=== PATIENT | male | born 1980 | race Caucasian/White ===

== ENCOUNTER 2018-04-06 15:22 | Emergency (ER) | payer OTHER ==
[2018-04-06 15:44] VITALS: BMI 26.8
--- NOTE | 2018-04-06 15:55 | PDOC ---
Rapid Medical Evaluation Chief Complaint: Pain Time Seen by Provider: 04/06/18 15:41 Medical Evaluation: 04/06/18 15:41 I have performed a brief in-person evaluation of this patient. The patient presents with a chief complaint of: left groin pain and swelling Pertinent physical exam findings: soft tender inguinal mass present I have ordered the following: labs, urine, CTAP The patient will proceed to the ED for further evaluation. Discharge Disposition - Diagnosis Inguinal bulge - Referrals Referrals: Amber Morales MD [Primary Care Provider] - - Patient Instructions - Post Discharge Activity
[2018-04-06 17:09] LABS: BASO % 0.5 % (0-2.0); EOS % 0.5 % (0-4.5); HEMATOCRIT 45.4 % (35.4-49); HEMOGLOBIN 16.4 GM/dL (11.7-16.9); LYMPH % 21.2 % (8-40); MCH 33.6 pg (25.7-33.7); MCHC 36.2 g/dl (32.0-35.9); MEAN CELL VOLUME 92.9 fl (80-96); MEAN PLT VOLUME 10.6 fl (7.5-11.1); MONO % 6.6 % (3.8-10.2); NEUT % 71.2 % (42.8-82.8); PLATELET COUNT 226 K/MM3 (134-434); RBC 4.89 M/mm3 (4.00-5.60); RDW 13.2 % (11.9-15.9)
[2018-04-06 17:24] LABS: INR 1.05 (0.83-1.09); PROTHROMBIN TIME (PATIENT) 12.4 SEC (9.7-13.0)
--- NOTE | 2018-04-06 17:29 | PDOC ---
History of Present Illness - General Chief Complaint: Pain Stated Complaint: SENT BY PCP FOR A CTSCAN Time Seen by Provider: 04/06/18 15:41 History Source: Patient - History of Present Illness Timing/Duration: reports: constant Quality: reports: severe Abdominal Pain Onset Location: reports: other (L groin) Past History - Past Medical History Allergies/Adverse Reactions: Allergies Allergy/AdvReac Type Severity Reaction Status Date / Time No Known Allergies Allergy Verified 04/06/18 15:44 Home Medications: Ambulatory Orders NK [No Known Home Medication] 04/06/18 COPD: No - Suicide/Smoking/Psychosocial Hx Smoking History: Never smoked Have you smoked in the past 12 months: No Information on smoking cessation initiated: No Hx Alcohol Use: No Drug/Substance Use Hx: No Review of Systems - Review of Systems Constitutional: No: Chills, Fever ABD/GI: No: Constipated, Diarrhea, Nausea, Vomiting, Abdominal cramping : No: Burning, Dysuria, Discharge, Flank Pain, Hematuria, Testicular Mass, Testicular Swelling, Testicular Pain *Physical Exam - Vital Signs Last Vital Signs Temp Pulse Resp BP Pulse Ox 98.0 F 78 18 129/88 100 04/06/18 15:42 04/06/18 15:42 04/06/18 15:42 04/06/18 15:42 04/06/18 15:42 - Physical Exam General Appearance: Yes: Appropriately Dressed. No: Apparent Distress HEENT: positive: Normal Voice Neck: positive: Supple Respiratory/Chest: negative: Respiratory Distress Gastrointestinal/Abdominal: positive: Normal Bowel Sounds, Tender (sig ttp to L groin w/ possible incarcerated hernia), Soft. negative: Distended, Guarding, Rebound Musculoskeletal: negative: CVA Tenderness Integumentary: positive: Dry, Warm Neurologic: positive: Fully Oriented, Alert, Normal Mood/Affect Moderate Sedation - Procedure Monitoring Vital Signs: Procedure Monitoring Vital Signs Temperature 98.0 F 04/06/18 15:42 Pulse Rate 78 04/06/18 15:42 Respiratory Rate 18 04/06/18 15:42 Blood Pressure 129/88 04/06/18 15:42 O2 Sat by Pulse Oximetry (%) 100 04/06/18 15:42 ED Treatment Course - LABORATORY CBC & Chemistry Diagram: 04/06/18 16:54 04/06/18 16:54 Medical Decision Making - Medical Decision Making 04/06/18 17:22 37 yo M, no sig hx, here w/ painful swelling to L groin that he noticed upon waking this am. Denies trauma. Reports that he started lifting weights recently. No constipation, n/v/f/c, dysuria, hematuria, penile discharge or testicular pain/swelling. See exam R/o incarcerated hernia -pain control -labs -CT 04/06/18 18:59 Labs wnl, pt in CT currently. Signed out to night team *DC/Admit/Observation/Transfer Diagnosis at time of Disposition: Inguinal bulge - Referrals Referrals: Amber Morales MD [Primary Care Provider] - - Patient Instructions - Post Discharge Activity
[2018-04-06 17:31] LABS: ALBUMIN 4.4 g/dl (3.4-5.0); ALK PHOS 76 U/L (45-117); ANION GAP 6 MMOL/L (8-16); BILIRUBIN,TOTAL 0.6 mg/dL (0.2-1); BLOOD UREA NITROGEN 6 mg/dL (7-18); CALCIUM 9.3 mg/dL (8.5-10.1); CHLORIDE 103 mmol/L (98-107); CO2 28 mmol/L (21-32); CREATININE 0.8 mg/dL (0.55-1.3); GLUCOSE,RANDOM 87 mg/dL (74-106); POTASSIUM 4.3 mmol/L (3.5-5.1); SGOT/AST 30 U/L (15-37); SGPT/ALT 42 U/L (13-61); SODIUM 137 mmol/L (136-145); TOT PROT 7.7 g/dl (6.4-8.2)
[2018-04-06 18:12] VITALS: BP 121/78; PULSE 79; TEMP 98.4
[2018-04-06 19:03] LABS: URINE APPEARANCE CLEAR; URINE BILIRUBIN NEGATIVE (<2.0 mg/dL); URINE COLOR STRAW; URINE GLUCOSE (UA) NEGATIVE (NEGATIVE); URINE KETONE NEGATIVE (NEGATIVE); URINE LEUK ESTERASE NEGATIVE (NEGATIVE); URINE NITRITE NEGATIVE (NEGATIVE); URINE PROTEIN NEGATIVE (NEGATIVE); URINE UROBILINOGEN NEGATIVE mg/dL (0.2-1.0)
--- NOTE | 2018-04-06 19:46 | PDOC ---
*Physical Exam - Vital Signs Last Vital Signs Temp Pulse Resp BP Pulse Ox 98.4 F 79 18 121/78 98 04/06/18 18:11 04/06/18 18:11 04/06/18 18:11 04/06/18 18:11 04/06/18 18:11 ED Treatment Course - LABORATORY CBC & Chemistry Diagram: 04/06/18 16:54 04/06/18 16:54 - ADDITIONAL ORDERS Additional order review: Laboratory Results 04/06/18 04/06/18 04/06/18 18:40 16:54 16:54 PT with INR INR Sodium 137 Potassium 4.3 Chloride 103 Carbon Dioxide 28 Anion Gap 6 L BUN 6 L Creatinine 0.8 Creat Clearance w eGFR > 60 Random Glucose 87 Calcium 9.3 Total Bilirubin 0.6 AST 30 ALT 42 Alkaline Phosphatase 76 Total Protein 7.7 Albumin 4.4 Urine Color Straw Urine Appearance Clear Urine pH 7.0 Ur Specific [place] 1.004 L Urine Protein Negative Urine Glucose (UA) Negative Urine Ketones Negative Urine Blood Negative Urine Nitrite Negative Urine Bilirubin Negative Urine Urobilinogen Negative Ur Leukocyte Esterase Negative Blood Type AB NEGATIVE Antibody Screen Negative 04/06/18 16:54 PT with INR 12.40 INR 1.05 Sodium Potassium Chloride Carbon Dioxide Anion Gap BUN Creatinine Creat Clearance w eGFR Random Glucose Calcium Total Bilirubin AST ALT Alkaline Phosphatase Total Protein Albumin Urine Color Urine Appearance Urine pH Ur Specific [place] Urine Protein Urine Glucose (UA) Urine Ketones Urine Blood Urine Nitrite Urine Bilirubin Urine Urobilinogen Ur Leukocyte Esterase Blood Type Antibody Screen 04/06/18 16:54 RBC 4.89 MCV 92.9 MCHC 36.2 H RDW 13.2 MPV 10.6 Neutrophils % 71.2 Lymphocytes % 21.2 Monocytes % 6.6 Eosinophils % 0.5 Basophils % 0.5 Medical Decision Making - Medical Decision Making Patient signed out to me by CRISTOBAL Peoples Patient unable to be seen currently as currently in CT Will reassess when he returns 04/06/18 19:45 Patient reassessed and appears well; in no acute distress CT A/P shows only small fat containing hernia as well as nonspecific left inguinal edema Findings d/w patient Will refer patient to surgery with further care 04/06/18 21:20 *DC/Admit/Observation/Transfer Diagnosis at time of Disposition: Inguinal bulge - Discharge Dispostion Disposition: HOME Condition at time of disposition: Stable Decision to Admit order: No - Referrals Referrals: Amber Morales MD [Primary Care Provider] - 3 days Axel Dai MD [Staff Physician] - Call tomorrow - Patient Instructions Printed Discharge Instructions: DI for Groin Hernia Additional Instructions: Thank you for choosing [facility]. It was a pleasure taking care of you. Please call surgery clinic tomorrow for follow-up regarding hernia Avoid lifting heavy Return to the Emergency Department if your symptoms worsen or persist, you have fever, worsening pain along hernia site, change in color of site, severe abdominal pain, vomiting or other concerning symptoms. - Post Discharge Activity
== END 2018-04-06 21:32 | disposition home or self-care (01) ==
LOC: JER 15:22
DX: R22.9 Localized swelling, mass and lump, unspecified (principal)
CPT/HCPCS: 36415; 74177-TC; 80053; 81003; 85025; 85610; 86850; 86900; 86901; 99283-25